=== PATIENT | male | born 1985 | race Caucasian/White ===

== ENCOUNTER 2016-09-10 15:30 | Emergency (ER) | payer BC ==
[~2016-09-10] VITALS: Ht 172.7 cm; Wt 87.0 kg
[2016-09-10 15:35] VITALS: BP 137/74
[2016-09-10] MEDS ORDERED: BUPIVACAINE 0.25% ONE (16:16)
[2016-09-10] MEDS ORDERED: LIDOCAINE 1%, 20ML ONE (16:17)
[2016-09-10] MEDS ORDERED: BUPIVACAINE/PF-EPI 0.25% 1:200K SQ ONE (16:30)
[2016-09-10] MEDS ORDERED: LIDOCAINE 1%, 20ML SQ ONE (16:30)
== END 2016-09-10 16:38 | disposition home or self-care (01) ==
LOC: ED 16:32
DX: K04.7 Periapical abscess without sinus (principal); Z90.49 Acquired absence of other specified parts of digestive tract
CPT/HCPCS: 64400

== ENCOUNTER 2017-05-25 17:46 | Emergency (ER) | payer BC, OTHER ==
[~2017-05-25] VITALS: Ht 172.7 cm; Wt 90.6 kg
[2017-05-25 17:54] VITALS: BP 120/79
[2017-05-25] MEDS ORDERED: LIDOCAINE 1%, 20ML ONE (18:20)
[2017-05-25] MEDS ORDERED: LIDOCAINE 1%, 20ML SQ ONE (18:30)
[2017-05-25] MEDS ORDERED: PHEN100C PO (20:59)
[2017-05-25] MEDS ORDERED: OXCA150T3 PO (20:59)
[2017-05-25] MEDS ORDERED: CLON2TAB PO (20:59)
== END 2017-05-25 20:55 | disposition home or self-care (01) ==
LOC: ED 20:54
DX: L02.01 Cutaneous abscess of face (principal); Z90.49 Acquired absence of other specified parts of digestive tract
CPT/HCPCS: 10060; 99283; J3490

== ENCOUNTER 2017-11-25 21:55 | Emergency (ER) | payer SELFPAY ==
[~2017-11-25] VITALS: Ht 172.7 cm; Wt 89.6 kg
[~2017-11-25 21:55] MED LIST: CLON2TAB PO; OXCA150T3 PO; PHEN100C PO
[2017-11-25 22:00] VITALS: BP 124/79
[2017-11-25] MEDS ORDERED: SULFAMETH./TRIMETHOPRIM DS 800MG/160MG TABLET PO ONE (23:30)
[2017-11-25] MEDS ORDERED: CEFAZOLIN 1,000 MG IM ONE (23:30)
[2017-11-25] MEDS ORDERED: CEFAZOLIN 1,000 MG ONE (23:56)
[2017-11-25] MEDS ORDERED: SULFAMETH./TRIMETHOPRIM DS 800MG/160MG TABLET ONE (23:56)
== END 2017-11-26 00:36 | disposition home or self-care (01) ==
LOC: ED 23:59
DX: L03.116 Cellulitis of left lower limb (principal)
CPT/HCPCS: 96372; 99283; J0690

== ENCOUNTER 2017-12-21 01:42 | Emergency (ER) | payer SELFPAY ==
[~2017-12-21] VITALS: Ht 172.7 cm; Wt 88.0 kg
[2017-12-21 01:46] VITALS: BP 111/75
== END 2017-12-21 03:06 | disposition home or self-care (01) ==
LOC: ED 02:17
DX: L03.115 Cellulitis of right lower limb (principal)
CPT/HCPCS: 99283

== ENCOUNTER 2018-05-21 14:43 | Emergency (ER) | payer OTHER ==
[~2018-05-21] VITALS: Ht 172.7 cm; Wt 88.0 kg
[2018-05-21 14:59] VITALS: BP 117/71
[2018-05-21] MEDS ORDERED: SILVER SULF. CRM 1% , 25GM ONE (15:48)
[2018-05-21] MEDS ORDERED: SILVER SULF. CRM 1% , 25GM TP ONE (16:00)
== END 2018-05-21 16:06 | disposition home or self-care (01) ==
LOC: ED 15:47
DX: T23.251D Burn of second degree of right palm, subsequent encounter (principal); B95.8 Unspecified staphylococcus as the cause of diseases classified elsewhere; Z90.49 Acquired absence of other specified parts of digestive tract
CPT/HCPCS: 16020; 99284

== ENCOUNTER 2018-06-11 22:06 | Emergency (ER) | payer OTHER ==
[~2018-06-11] VITALS: Ht 172.7 cm; Wt 91.0 kg
[2018-06-11 22:14] VITALS: BP 116/70
[2018-06-11] MEDS ORDERED: SILVER SULF. CRM 1% , 25GM ONE (22:45)
[2018-06-11] MEDS ORDERED: SILVER SULF. CRM 1% , 25GM TP ONE (23:00)
== END 2018-06-11 22:58 | disposition home or self-care (01) ==
LOC: ED 22:44
DX: T23.252D Burn of second degree of left palm, subsequent encounter (principal)
CPT/HCPCS: 99282

== ENCOUNTER 2018-08-09 02:07 | Emergency (ER) | payer SELFPAY ==
[~2018-08-09] VITALS: Ht 172.7 cm; Wt 89.6 kg
[2018-08-09] MEDS ORDERED: LIDOCAINE-MPF 1%, 5ML ONE (02:57)
[2018-08-09] MEDS ORDERED: LIDOCAINE 1%, 10ML INFIL ONE (03:00)
[2018-08-09 03:21] VITALS: BP 119/74
== END 2018-08-09 03:23 | disposition home or self-care (01) ==
LOC: ED 03:19
DX: L03.116 Cellulitis of left lower limb (principal); L02.416 Cutaneous abscess of left lower limb
CPT/HCPCS: 10060; 99283

== ENCOUNTER 2018-08-18 00:50 | Emergency (ER) | payer OTHER ==
[~2018-08-18] VITALS: Ht 172.7 cm; Wt 89.3 kg
[2018-08-18 00:52] VITALS: BP 115/82
--- NOTE | 2018-08-18 00:59 | NUR ---
AARTI PERSAUD AT TRIAGE FOR RECHECK WOUND WOUND WAS WELL HEALED AND DRESSING WAS ON .
[2018-08-18] MEDS ORDERED: AZITHROMYCIN 500 MG TABLET PO ONE (01:30)
[2018-08-18] MEDS ORDERED: CEFTRIAXONE 250 MG IM ONE (01:30)
[2018-08-18] MEDS ORDERED: CEFTRIAXONE 250 MG ONE (01:33)
[2018-08-18] MEDS ORDERED: AZITHROMYCIN 250 MG TABLET ONE (01:33)
--- NOTE | 2018-08-18 01:45 | NUR ---
PT MEDICATED PER EMAR
--- NOTE | 2018-08-18 01:52 | NUR ---
NO S/S OF ABX RXN NOTED. DC EDUCATION PROVIDED. PT DEMONSTRATES UNDERSTANDING.
== END 2018-08-18 01:54 | disposition home or self-care (01) ==
LOC: ED 01:48
DX: A74.89 Other chlamydial diseases (principal); A59.9 Trichomoniasis, unspecified; Z48.01 Encounter for change or removal of surgical wound dressing
CPT/HCPCS: 96372; 99283; J0696